=== PATIENT | female | born 1980 | race Two or more races ===

== ENCOUNTER 2017-12-21 07:24 | Outpatient (CLI) | payer OTHER ==
[~2017-12-21] VITALS: Ht 165.1 cm; Wt 58.5 kg
[2017-12-21] MEDS ORDERED: ZYRTEC10 MG PO (08:41)
[2017-12-21] MEDS ORDERED: FLONASE16 GM NASAL (08:41)
== END 2017-12-21 07:45 | disposition home or self-care (01) ==
LOC: OFIC 805 07:24
DX: J31.0 Chronic rhinitis (principal); H61.23 Impacted cerumen, bilateral; J34.3 Hypertrophy of nasal turbinates

== ENCOUNTER 2018-08-31 06:15 | Day surgery (SDC) | payer OTHER ==
[~2018-08-31 06:15] MED LIST: FLONASE16 GM NASAL; ZYRTEC10 MG PO
[2018-08-31] MEDS ORDERED: MONODOX100 MG PO (11:48)
[2018-08-31] MEDS ORDERED: TYLENOL-CODEINE1 TA1 PO (11:48)
== END 2018-08-31 16:10 | disposition home or self-care (01) ==
LOC: CIR.AMB 06:15
DX: N84.0 Polyp of corpus uteri (principal); D25.0 Submucous leiomyoma of uterus

== ENCOUNTER 2021-02-06 07:45 | Inpatient (IN) | payer OTHER ==
[~2021-02-06] VITALS: Ht 165.1 cm; Wt 63.5 kg
[~2021-02-06 07:45] MED LIST changes: +MONODOX100 MG PO; +TYLENOL-CODEINE1 TA1 PO
[2021-02-12] MEDS ORDERED: SPRINTEC 28 DA1 EACH (14:39)
[2021-02-13] MEDS ORDERED: NAPR500T14 PO (08:49)
[2021-02-13] MEDS ORDERED: Tylenol #3 PO (08:49)
== END 2021-02-13 11:23 | disposition home or self-care (01) | DRG 743 ==
LOC: SURH 02-12 07:45 → O/R 02-12 10:00 → OB/GYN 02-12 10:00 → SURH 02-12 14:00 → O/R 02-12 14:42 → OB/GYN 02-12 14:54
PROVIDERS: ADMIT Obstetrics & Gynecology; ATTEND Obstetrics & Gynecology
PROC: 0UT2FZZ Resection of Bilateral Ovaries, Via Natural or Artificial Opening With Percutaneous Endoscopic Assistance (ICD-10-PCS; 2021-02-12)
PROC: 0UT7FZZ Resection of Bilateral Fallopian Tubes, Via Natural or Artificial Opening With Percutaneous Endoscopic Assistance (ICD-10-PCS; 2021-02-12)
PROC: 0UQF8ZZ Repair Cul-de-sac, Via Natural or Artificial Opening Endoscopic (ICD-10-PCS; 2021-02-12)
PROC: 0USG8ZZ Reposition Vagina, Via Natural or Artificial Opening Endoscopic (ICD-10-PCS; 2021-02-12)
PROC: 0TJB8ZZ Inspection of Bladder, Via Natural or Artificial Opening Endoscopic (ICD-10-PCS; 2021-02-12)
PROC: 0UT9FZZ Resection of Uterus, Via Natural or Artificial Opening With Percutaneous Endoscopic Assistance (ICD-10-PCS; principal; 2021-02-12 14:00)
DX: D25.0 Submucous leiomyoma of uterus (principal); N81.11 Cystocele, midline; N80.2 Endometriosis of fallopian tube; D50.0 Iron deficiency anemia secondary to blood loss (chronic); D25.1 Intramural leiomyoma of uterus; D25.2 Subserosal leiomyoma of uterus; N84.0 Polyp of corpus uteri; N94.5 Secondary dysmenorrhea; N92.1 Excessive and frequent menstruation with irregular cycle

== ENCOUNTER 2023-03-15 09:26 | Emergency (ER) | payer OTHER ==
[~2023-03-15] VITALS: Ht 165.1 cm; Wt 63.5 kg
[~2023-03-15 09:26] MED LIST changes: +NAPR500T14 PO; +SPRINTEC 28 DA1 EACH; +Tylenol #3 PO
== END 2023-03-15 15:24 | disposition home or self-care (01) ==
LOC: ER 09:26
DX: R10.2 Pelvic and perineal pain (principal)